=== PATIENT | male | born 1965 | race African-American/Black ===

== ENCOUNTER 2018-09-12 00:01 | Emergency (ER) | payer SELFPAY | END 2018-09-12 00:04 | disposition left against medical advice (07) | LOC: EMS 00:04 | DX: S61.411A Laceration without foreign body of right hand, initial encounter (principal); W45.8XXA Other foreign body or object entering through skin, initial encounter; Y93.89 Activity, other specified; Y92.89 Other specified places as the place of occurrence of the external cause; Y99.8 Other external cause status; Z53.21 Procedure and treatment not carried out due to patient leaving prior to being seen by health care provider ==